=== PATIENT | female | born 1965 | race Caucasian/White ===

== ENCOUNTER 2019-05-30 07:52 | Emergency (ER) | payer OTHER ==
[2019-05-30 07:56] VITALS: BP 100/63; PULSE 75; TEMP 98.7; BMI 23.3
[2019-05-30] MEDS ORDERED: DIPHTH,PERTUSS(ACELL),TET 0.5 ML DISP.SYRIN IM ONE ×2 (08:45→08:46)
--- NOTE | 2019-05-30 08:45 | PDOC ---
History of Present Illness - General Chief Complaint: Laceration Stated Complaint: i cut my finger Time Seen by Provider: 05/30/19 07:52 - History of Present Illness Initial Comments: 05/30/19 08:46 54 years old with no significant past medical history presents to the emergency department with laceration to right hand below the third MCP joint. Was taking out the garbage cut herself on the Saran wraper serrated edge, some bleeding at first but then did not stop complaining of only mild pain not grossly contaminated symptoms are mild to moderate persistent concent no exacerbating or alleviating factors. Past History - Past Medical History Allergies/Adverse Reactions: Allergies Allergy/AdvReac Type Severity Reaction Status Date / Time No Known Allergies Allergy Verified 05/30/19 07:53 Home Medications: Ambulatory Orders Fluoxetine HCl [Prozac] 10 mg PO DAILY 05/30/19 CVA: No COPD: No - Suicide/Smoking/Psychosocial Hx Smoking History: Never smoked Hx Alcohol Use: No Drug/Substance Use Hx: No Review of Systems - Review of Systems Comments:: 05/30/19 08:50 ROS: A complete review of 10 out of 10 review of systems is taken and is negative apart from what is previously mentioned below and in the HPI. *Physical Exam - Vital Signs Last Vital Signs Temp Pulse Resp BP Pulse Ox 98.7 F 75 16 100/63 100 05/30/19 07:52 05/30/19 07:52 05/30/19 07:52 05/30/19 07:52 05/30/19 07:52 - Physical Exam Comments: 05/30/19 08:51 Vitals: Triage Vital signs reviewed General Appearance: no acute distress, well nourished well developed, Head: Atraumatic, Extremities: Full range of motion to all extremities, no cyanosis, clubbing, or edema extensor mechanism intact to the third digit, FDS FDP intact. Neurovascularly intact distally. Skin: Warm and dry, 3.5 cm laceration proximal to third MCP joint. Neuro: Strength intact to all extremities, Sensation intact to all extremities, Psych: normal mood, normal affect Procedures - Laceration/Wound Repair Right Hand Wound Length: 2.6 to 5.0 cm Wound Explored: clean Wound's Depth, Shape: superficial Irrigated w/ Saline: Yes Betadine Prep: Yes Anesthesia: 1% Lidocaine Suture Size/Type: 5:0 Number of Sutures: 6 Layer Closure: No Sterile Dressing Applied: Yes Splint Applied: No Medical Decision Making - Medical Decision Making 05/30/19 08:52 Clean superficial wound well approximated with sutures Patient will follow up with hand if any weakness numbness or return in 7 days for suture removal or immediately for any signs of infection Findings, the need for follow-up and strict return instructions discussed with patient. *DC/Admit/Observation/Transfer Diagnosis at time of Disposition: Laceration - Discharge Dispostion Disposition: HOME Condition at time of disposition: Stable Decision to Admit order: No - Referrals Referrals: Crow Andrews MD [Staff Physician] - - Patient Instructions Printed Discharge Instructions: DI for Laceration Repair Additional Instructions: Leave covered and dry for the next 36 hours then apply bacitracin twice a day. Okay to gently wash but do not disrupt sutures after that. Return to the emergency department in 7-10 days for suture removal or immediately for any redness signs of infection or for any concerns. If you notice any weakness or numbness in the hand please follow up immediately with Dr. Andrews hand surgery. - Post Discharge Activity
== END 2019-05-30 08:57 | disposition home or self-care (01) ==
LOC: FER 07:52
PROC: 0HQFXZZ Repair Right Hand Skin, External Approach (ICD-10-PCS; principal; 2019-05-30)
PROC: 3E0234Z Introduction of Serum, Toxoid and Vaccine into Muscle, Percutaneous Approach (ICD-10-PCS; 2019-05-30)
DX: S61.411A Laceration without foreign body of right hand, initial encounter (principal); W26.8XXA Contact with other sharp object(s), not elsewhere classified, initial encounter; Y93.89 Activity, other specified; Y92.009 Unspecified place in unspecified non-institutional (private) residence as the place of occurrence of the external cause
CPT/HCPCS: 90715; 99282-25

== ENCOUNTER 2019-06-08 08:54 | Emergency (ER) | payer OTHER ==
[2019-06-08 08:58] VITALS: BP 116/71; PULSE 80; TEMP 98.3; BMI 23.5
--- NOTE | 2019-06-08 09:15 | PDOC ---
Suture Removal/Wound Check HPI - History of Present Illness Chief Complaint: Suture/Staple Removal (other) Stated Complaint: SUTURE REMOVAL Time Seen by Provider: 06/08/19 09:14 - Onset of Previous Treatment Comment:: 06/08/19 09:19 54yo F with no PMH presents to the ED for suture removal. On 05/30, pt sustained laceration to R hand at MCP joint after a serrated edge cut her hand through accidentally. Denies complication, no significant redness, pain, discharge from the wound. No fevers or chills. Past History - Past Medical History Allergies/Adverse Reactions: Allergies Allergy/AdvReac Type Severity Reaction Status Date / Time No Known Allergies Allergy Verified 06/08/19 08:54 Home Medications: Ambulatory Orders NK [No Known Home Medication] 06/08/19 CVA: No COPD: No - Immunization History Immunization Up to Date: Yes - Suicide/Smoking/Psychosocial Hx Smoking History: Never smoked Have you smoked in the past 12 months: No Information on smoking cessation initiated: No Hx Alcohol Use: No Drug/Substance Use Hx: No Suture Removal/Wound Check PE - Physical Exam Comments: 06/08/19 09:20 GENERAL: Awake, alert, and fully oriented, in no acute distress EYES: Sclera anicteric, conjunctiva clear LUNGS: Breath sounds equal, clear to auscultation bilaterally. No wheezes, and no crackles HEART: Regular rate and rhythm, normal S1 and S2, no murmurs, rubs or gallops ABDOMEN: Soft, nontender, normoactive bowel sounds. No guarding, no rebound. No masses EXTREMITIES: Normal range of motion, no edema. No cords, erythema, or tenderness. R third digit with FROM, extensor and flexor mechanisms intact. Normal sensation. NVI. NEUROLOGICAL: Normal speech, cranial nerves intact, normal gait SKIN: 3.5 cm laceration to proximal to third MCP joint with [address], mild erythema at ulnar wound edge w/o discharge or dehiscence. Well approximated. *Review of Systems - Review of Systems Comments:: 06/08/19 09:26 GENERAL/CONSTITUTIONAL: No fever or chills. No weakness. HEAD, EYES, EARS, NOSE AND THROAT: No change in vision. No ear pain or discharge. No sore throat. GASTROINTESTINAL: No nausea, vomiting, diarrhea or constipation. GENITOURINARY: No dysuria, frequency, or change in urination. CARDIOVASCULAR: No chest pain or shortness of breath. RESPIRATORY: No cough, wheezing, or hemoptysis. MUSCULOSKELETAL: No joint or muscle swelling or pain. No neck or back pain. SKIN: No rash NEUROLOGIC: No headache, vertigo, loss of consciousness, or change in strength/ sensation. ENDOCRINE: No increased thirst. No abnormal weight change. HEMATOLOGIC/LYMPHATIC: No anemia, easy bleeding, or history of blood clots. ALLERGIC/IMMUNOLOGIC: No hives or skin allergy. *Physical Exam - Vital Signs Last Vital Signs Temp Pulse Resp BP Pulse Ox 98.3 F 80 20 116/71 100 06/08/19 08:54 06/08/19 08:54 06/08/19 08:54 06/08/19 08:54 06/08/19 08:54 Medical Decision Making - Medical Decision Making 06/08/19 09:27 54yo F presents to the ED for suture removal Proximal and distal edges are well healed but slight bleeding upon removal of middle 2 stiches, likely as directly over the MCP joint. Pt reports she has been typing and using her hand normally Two steri strips applied with bacitracin dressing and long finger splint placed to immobilize the R MCP joint Pt instructed to wear for 1 week Will remove splint daily to apply bacitracin Return precautions discussed. I discussed the physical exam findings, ancillary test results and final diagnoses with the patient. I answered all of the patient's questions. The patient was satisfied with the care received and felt comfortable with the discharge plan and treatment plan. The patient will call their primary care physician within 24 hours to arrange follow-up and will return to the Emergency Department with any new, persistent or worsening symptoms. *DC/Admit/Observation/Transfer Diagnosis at time of Disposition: Encounter for removal of sutures - Discharge Dispostion Disposition: HOME Condition at time of disposition: Stable Decision to Admit order: No - Referrals - Patient Instructions Printed Discharge Instructions: DI for Suture Removal Additional Instructions: Keep the steri strips on until they fall off - typically about 5-7 days Wear the splint provided to allow the wound to heal quicker Return to the emergency department if you have any new, worsening, or concerning symptoms - Post Discharge Activity - Attestations Physician Attestion: 06/08/19 09:47 I, Dr. Claudia Major MD, attest that this document has been prepared under my direction and personally reviewed by me in its entirety. I further attest, that it accurately reflects all work, treatment, procedures and medical decision -making performed by me.
== END 2019-06-08 09:51 | disposition home or self-care (01) ==
LOC: FER 08:54
DX: Z48.02 Encounter for removal of sutures (principal)
CPT/HCPCS: 99281-25